=== PATIENT | male | born 1980 | race African-American/Black ===

== ENCOUNTER 2024-05-25 11:40 | Outpatient (CLI) | payer OTHER | END 2024-05-25 11:41 | disposition home or self-care (01) | LOC: BICRAD 11:40 | PROVIDERS: ATTEND Family Medicine | DX: M54.2 Cervicalgia (principal); M54.6 Pain in thoracic spine; M47.814 Spondylosis without myelopathy or radiculopathy, thoracic region; M47.812 Spondylosis without myelopathy or radiculopathy, cervical region | CPT/HCPCS: 72040; 72070 ==